=== PATIENT | female | born 2000 | race Caucasian/White ===

== ENCOUNTER → 2022-06-06 | Outpatient (CLI) | payer OTHER | LOC: M RAD 09:44 | PROVIDERS: ATTEND Physician Assistant | DX: M25.552 Pain in left hip (principal) | CPT/HCPCS: 78315; A9503 ==

== ENCOUNTER → 2022-07-31 | Outpatient (CLI) | payer OTHER | LOC: M LABSMTC 10:54 | PROVIDERS: ATTEND Anesthesiology | DX: Z01.818 Encounter for other preprocedural examination (principal); Z11.52 Encounter for screening for COVID-19 ==

== ENCOUNTER → 2022-08-26 | Outpatient (CLI) | payer OTHER ==
[~2022-08-26] MED LIST: ISOVUE-300 61% 50ML VIAL ONE; LIDOCAINE 1% MDV 20ML VIAL ONE; TRIAMCINOLONE ACETONIDE SUSP 40MG/ML 1ML VIAL ONE
== END ==
LOC: M PLAIMG 15:06
PROVIDERS: ATTEND Physician Assistant Surgical
DX: S73.122A Ischiocapsular ligament sprain of left hip, initial encounter (principal); W18.30XA Fall on same level, unspecified, initial encounter; Y92.009 Unspecified place in unspecified non-institutional (private) residence as the place of occurrence of the external cause
CPT/HCPCS: 20610; 76000; J3301

== ENCOUNTER 2022-09-05 10:36 | Day surgery (SDC) | payer OTHER ==
[~2022-09-05] VITALS: Ht 167.6 cm; Wt 89.8 kg
[2022-09-05] MEDS ORDERED: fentaNYL 100 MCG/2 ML INJECTION As Ordered ONE ×2 (11:14→12:37)
[2022-09-05] MEDS ORDERED: propofoL 200 MG/20 ML VIAL As Ordered ONE (11:14)
[2022-09-05] MEDS ORDERED: ONDANSETRON 4MG 2ML VIAL As Ordered ONE (11:14)
[2022-09-05] MEDS ORDERED: KETOROLAC 60MG 2ML VIAL As Ordered ONE (11:14)
[2022-09-05] MEDS ORDERED: ROCURONIUM BROMIDE 50 MG/5 ML VIAL As Ordered ONE (11:14)
[2022-09-05] MEDS ORDERED: MIDAZOLAM INJ 2MG/2ML VIAL (J2250 PER 1MG) As Ordered ONE (11:14)
[2022-09-05] MEDS ORDERED: dexameTHASONE 4 MG/ML 1ML VIAL (J1100 PER 1MG) As Ordered ONE (11:14)
[2022-09-05] MEDS ORDERED: LIDOCAINE 2% 100MG/5ML SDV (FOR ANES.) As Ordered ONE (11:14)
[2022-09-05] MEDS ORDERED: SUGAMMADEX SODIUM 500 MG/5 ML VIAL (BRIDION) As Ordered ONE (11:14)
[2022-09-05] MEDS ORDERED: BUPIVACAINE/EPIN 0.5% 30 ML VIAL As Ordered ONE (11:49)
[2022-09-05] MEDS ORDERED: LR 1,000 ML IV SCH ×3 (12:00→16:10)
[2022-09-05] MEDS ORDERED: ACETAMINOPHEN 1000MG 100ML IV BAG As Ordered ONE (12:39)
[2022-09-05] MEDS ORDERED: oxyCODONE 5MG TAB PO PRN (12:45)
[2022-09-05] MEDS ORDERED: fentaNYL 100 MCG/2 ML INJECTION IV PRN (12:45)
[2022-09-05] MEDS ORDERED: ONDANSETRON 4MG 2ML VIAL IV PRN ×2 (12:45→16:10)
[2022-09-05] MEDS: HYDROMORPHONE HCL 0.5 MG/ 0.5 ML SYRINGE (J1170 PER 1) IV PRN ×2 (13:18→13:24)
[2022-09-05] MEDS ORDERED: METOCLOPRAMIDE INJ 10MG/2ML VIAL (J2765 PER 1) IV STA (13:52)
[2022-09-05 15:15] VITALS: BP 139/86
[2022-09-05] MEDS ORDERED: HYDROcodone/APAP LIQUID 7.5-325MG 15ML UDC (LORTAB ELIXIR) PO PRN (16:10)
== END 2022-09-05 15:25 | disposition home or self-care (01) ==
LOC: M SDC 10:36
PROVIDERS: ATTEND Otolaryngology
DX: J35.03 Chronic tonsillitis and adenoiditis (principal)
CPT/HCPCS: 42821; 81025; 88302; J0131; J1100; J1170; J1885; J2250; J2405; J3010

== ENCOUNTER → 2023-01-02 | Outpatient (CLI) | payer OTHER ==
[2023-01-02 09:31] LABS: HEMATOCRIT 41.4 % (36.0-47.0); HEMOGLOBIN 13.2 g/dl (12.0-15.5); MEAN CORPUSCULAR HEMOGLOBIN 28.4 pg (27.0-33.0); MEAN CORPUSCULAR HGB CONC 31.9 g/dl (32.0-36.5); MEAN CORPUSCULAR VOLUME 89.2 fl (80.0-96.0); PLATELET COUNT, AUTOMATED 301 10^3/uL (150-450); RED BLOOD COUNT 4.64 10^6/uL (4.00-5.40); WHITE BLOOD COUNT 5.4 10^3/uL (4.0-10.0)
[2023-01-02 09:56] LABS: BLOOD UREA NITROGEN 9 MG/DL (9-23); CALCIUM LEVEL 9.1 MG/DL (8.5-10.1); CARBON DIOXIDE LEVEL 26 MMOL/L (20-31); CHLORIDE LEVEL 104 MMOL/L (98-107); CREATININE FOR GFR 0.76 MG/DL (0.55-1.30); GLOMERULAR FILTRATION RATE > 60.0 (>60); GLUCOSE, FASTING 86 MG/DL (60-100); POTASSIUM SERUM 4.4 MMOL/L (3.5-5.1); SODIUM LEVEL 137 MMOL/L (136-145)
== END ==
LOC: M LAB 09:03
PROVIDERS: ATTEND Plastic Surgery Surgery of the Hand
DX: N62 Hypertrophy of breast (principal)

== ENCOUNTER 2023-01-05 05:59 | Observation (INO) | payer OTHER ==
[2023-01-05] VITALS (11 sets, daily range): BP systolic 122–135; BP diastolic 74–85
[~2023-01-05] VITALS: Ht 167.6 cm; Wt 87.3 kg
[~2023-01-05 05:59] MED LIST changes: -ISOVUE-300 61% 50ML VIAL ONE; -LIDOCAINE 1% MDV 20ML VIAL ONE; +PHENYLephrine 500MCG 5ML (100MCG/ML) SYRINGE As Ordered ONE; -TRIAMCINOLONE ACETONIDE SUSP 40MG/ML 1ML VIAL ONE
[2023-01-05] MEDS ORDERED: HEPARIN SOD (PORCINE) 5000UNITS/ML 1ML VIAL/SYRINGE SQ ONE (06:00)
[2023-01-05] MEDS ORDERED: ceFAZolin SOD 2 GM in IV 1 EA IV ONE ×2 (06:00→12:00)
[2023-01-05] MEDS ORDERED: LR 1,000 ML IV SCH (07:05)
[2023-01-05] MEDS ORDERED: BUPIVACAINE HCL 0.25% 30ML VIAL As Ordered ONE (07:23)
[2023-01-05] MEDS ORDERED: BUPIVACAINE LIPOSOME/PF 1.3% 20ML VIAL (13.3MG/ML)(EXPAREL) As Ordered ONE (07:23)
[2023-01-05] MEDS ORDERED: GENTAMICIN SULF 80MG/2ML VIAL As Ordered ONE (07:23)
[2023-01-05] MEDS ORDERED: SCOPOLAMINE 1MG TRANSDERMAL PATCH As Ordered ONE (07:33)
[2023-01-05] MEDS ORDERED: SCOPOLAMINE 1MG TRANSDERMAL PATCH TOP SCH (08:00)
[2023-01-05] MEDS ORDERED: MIDAZOLAM INJ 2MG/2ML VIAL As Ordered ONE (10:57)
[2023-01-05] MEDS ORDERED: HYDROmorphone HCL 2MG/ML 1ML VIAL As Ordered ONE (10:57)
[2023-01-05] MEDS ORDERED: ROCURONIUM BROMIDE 50MG/5ML VIAL As Ordered ONE (10:57)
[2023-01-05] MEDS ORDERED: fentaNYL 250 MCG/5 ML INJECTION As Ordered ONE (10:57)
[2023-01-05] MEDS ORDERED: propofoL 200 MG/20 ML VIAL As Ordered ONE (10:57)
[2023-01-05] MEDS ORDERED: LIDOCAINE 2% 100MG/5ML SDV (FOR ANES.) As Ordered ONE (10:59)
[2023-01-05] MEDS ORDERED: ONDANSETRON 4MG 2ML VIAL As Ordered ONE (11:00)
[2023-01-05] MEDS ORDERED: METOCLOPRAMIDE INJ 10MG/2ML VIAL As Ordered ONE (11:00)
[2023-01-05] MEDS ORDERED: KETOROLAC 60MG 2ML VIAL As Ordered ONE (11:00)
[2023-01-05] MEDS ORDERED: ACETAMINOPHEN 1000MG 100ML IV BAG As Ordered ONE (11:00)
[2023-01-05] MEDS ORDERED: SUGAMMADEX SODIUM 500 MG/5 ML VIAL (BRIDION) As Ordered ONE (11:00)
[2023-01-05] MEDS ORDERED: oxyCODONE 5MG TAB PO PRN (11:30)
[2023-01-05] MEDS ORDERED: MORPHINE 2 MG/ML 1ML VIAL IV PRN (11:30)
[2023-01-05] MEDS ORDERED: fentaNYL 100 MCG/2 ML INJECTION IV PRN (11:30)
[2023-01-05] MEDS ORDERED: ONDANSETRON 4MG 2ML VIAL IV PRN ×2 (11:30→11:55)
[2023-01-05] MEDS ORDERED: ACETAMINOPHEN TAB 650MG DOSE (2X325MG) PO PRN (11:55)
[2023-01-05] MEDS ORDERED: traMADol 50 MG TAB PO PRN (11:55)
[2023-01-05] MEDS: LR 1,000 ML IV SCH ×2 (15:10→22:42)
[2023-01-05] MEDS: PERCOCET 5MG/325MG TAB PO PRN (16:28)
[2023-01-06 01:46] VITALS: BP 128/76
[2023-01-06] MEDS: LR 1,000 ML IV SCH (04:25)
[2023-01-06] MEDS: PERCOCET 5MG/325MG TAB PO PRN (04:25)
[2023-01-06 05:13] VITALS: BP 133/80
[2023-01-06] MEDS ORDERED: PERCOCET PO (08:32)
== END 2023-01-06 11:45 | disposition home or self-care (01) ==
LOC: M SDC 05:59 → M MS5PR 06:00
PROVIDERS: ADMIT Plastic Surgery Surgery of the Hand; ATTEND Plastic Surgery Surgery of the Hand
DX: N62 Hypertrophy of breast (principal); M54.6 Pain in thoracic spine; M54.2 Cervicalgia
CPT/HCPCS: 19318; 81025; 88305; 96374; 96375; C9290; J0131; J0690; J1100; J1170; J1580; J1644; J1885; J2250; J2370; J2405; J2765; J3010; S0020

== ENCOUNTER 2023-05-02 21:47 | Emergency (ER) | payer OTHER ==
[~2023-05-02] VITALS: Ht 167.6 cm; Wt 84.1 kg
[~2023-05-02 21:47] MED LIST changes: +PERCOCET PO; -PHENYLephrine 500MCG 5ML (100MCG/ML) SYRINGE As Ordered ONE
[2023-05-02 21:48] VITALS: TEMP 96.8
[2023-05-03 00:54] VITALS: BP 118/84; O2SAT 100
== END 2023-05-03 05:58 | disposition left against medical advice (07) ==
LOC: M ED 21:47
DX: Z53.21 Procedure and treatment not carried out due to patient leaving prior to being seen by health care provider (principal)